=== PATIENT | female | born 1980 | race Caucasian/White ===

== ENCOUNTER 2020-11-14 07:04 | Emergency (ER) | payer OTHER ==
[2020-11-14 08:05] LABS: HEMOGLOBIN 12.9 gm/dl (12.3-15.3); RED BLOOD COUNT 4.78 M/UL (4.00-5.10); WHITE BLOOD COUNT 8.1 K/UL (4.5-11.0)
[2020-11-14 08:57] LABS: BUN/CREATININE RATIO 23 (0-10)
[2020-11-15 05:53] LABS: HEMOGLOBIN 13.4 gm/dl (12.3-15.3); RED BLOOD COUNT 4.77 M/UL (4.00-5.10); WHITE BLOOD COUNT 8.4 K/UL (4.5-11.0)
[2020-11-15 06:19] LABS: BUN/CREATININE RATIO 15 (0-10)
[2020-11-15] MEDS ORDERED: KEPPRA 500 MG500 MG PO (09:42)
[2020-11-15] MEDS ORDERED: DIASTAT 2.5 MG2.5 MG PR (09:42)
== END 2020-11-15 09:55 | disposition home or self-care (01) ==
LOC: ER1 07:04
PROVIDERS: Internal Medicine
DX: G40.409 Other generalized epilepsy and epileptic syndromes, not intractable, without status epilepticus (principal); I10 Essential (primary) hypertension; F17.210 Nicotine dependence, cigarettes, uncomplicated; Z88.0 Allergy status to penicillin
CPT/HCPCS: 70450; 71045; 80053; 80183; 84703; 85025; 96374; 96375; 99284; J0330; J1953; J2060; J7030

== ENCOUNTER 2021-01-03 18:57 | Emergency (ER) | payer OTHER ==
[~2021-01-03 18:57] MED LIST: DIASTAT 2.5 MG2.5 MG PR; KEPPRA 500 MG500 MG PO
[2021-01-03 19:35] LABS: HEMOGLOBIN 14.4 gm/dl (12.3-15.3); RED BLOOD COUNT 5.06 M/UL (4.00-5.10)
[2021-01-03 20:16] LABS: BUN/CREATININE RATIO 11 (0-10)
== END 2021-01-03 23:11 | disposition home or self-care (01) ==
LOC: ER1 18:57
PROVIDERS: Emergency Medicine
DX: G40.909 Epilepsy, unspecified, not intractable, without status epilepticus (principal); S60.512A Abrasion of left hand, initial encounter; S60.511A Abrasion of right hand, initial encounter; Z88.0 Allergy status to penicillin; F17.200 Nicotine dependence, unspecified, uncomplicated; Z79.899 Other long term (current) drug therapy; Z23 Encounter for immunization
CPT/HCPCS: 80053; 80183; 81001; 83735; 84703; 85025; 90471; 90715; 93005; 99284

== ENCOUNTER 2022-03-20 12:01 | Emergency (ER) | payer BC, OTHER ==
[2022-03-20] MEDS ORDERED: PREDNISONE20 MG PO (15:01)
== END 2022-03-20 15:40 | disposition home or self-care (01) ==
LOC: ER1 12:01
DX: T78.3XXA Angioneurotic edema, initial encounter (principal)
CPT/HCPCS: 96372; 99283; J1100